=== PATIENT | female | born 1955 | race Caucasian/White ===

== ENCOUNTER 2020-02-06 05:51 | Outpatient (RCR) | payer BC, OTHER ==
[~2020-02-06] VITALS: Ht 152 cm; Wt 63.6 kg
[~2020-02-06 05:51] MED LIST: CALC-80 PO; DIPH-450 PO; ESTR0.455 PO; FIBER THERAPY PO; FLUT1DIS26 IH; HAIR SKIN AND NAILS PO; MMT17NA NS; MULT-608 PO; VENL50TA PO
[2020-02-06] MEDS ORDERED: MONT10TA21 PO (12:08)
[2020-02-06] MEDS ORDERED: MULT-1021 PO (12:08)
[2020-02-06] MEDS ORDERED: RT-ALBUINH IH (12:08)
[2020-02-06] MEDS ORDERED: BENZ-13 PO (12:08)
[2020-02-06] MEDS ORDERED: SERT100T8 PO (12:08)
[2020-02-06] MEDS ORDERED: GUAI-813 PO (12:08)
[2020-02-06] MEDS ORDERED: BUDE10.2 IH (12:08)
[2020-02-06] MEDS ORDERED: LORA10CA PO (12:08)
[2020-02-06] MEDS ORDERED: MULT-985 PO (12:08)
[2020-02-06] MEDS ORDERED: FLUT9.9S NS (12:08)
== END 2020-02-06 12:30 | disposition home or self-care (01) ==
LOC: PREOP 05:51 → EDSTATUS 13:00
PROVIDERS: ATTEND Otolaryngology Otolaryngology/Facial Plastic Surgery
DX: Z01.818 Encounter for other preprocedural examination (principal)

== ENCOUNTER 2020-02-13 08:15 | Day surgery (SDC) | payer BC, OTHER ==
[2020-02-13] VITALS (12 sets, daily range): BP systolic 108–162; BP diastolic 46–75
[~2020-02-13] VITALS: Ht 152 cm; Wt 63.6 kg
[~2020-02-13 08:15] MED LIST changes: +BENZ-13 PO; +BUDE10.2 IH; +FLUT9.9S NS; +GUAI-813 PO; +LORA10CA PO; +MONT10TA21 PO; +MULT-1021 PO; +MULT-985 PO; +RT-ALBUINH IH; +SERT100T8 PO
[2020-02-13] MEDS ORDERED: PHENYLEPHRINE 0.5% NASAL SPR (NEO-SYNEPHRINE) REG ONE (08:40)
[2020-02-13] MEDS ORDERED: BSS 15 ML ONE (08:40)
[2020-02-13] MEDS ORDERED: COCAINE HCL 4% 2 ML SYR ONE (08:40)
[2020-02-13] MEDS ORDERED: LIDOCAINE/EPI 1%-1:100,000 (XYLOCAINE) 20ML ONE (08:40)
[2020-02-13] MEDS ORDERED: LACTATED RINGERS 1,000 ML IV PRN (08:51)
[2020-02-13] MEDS ORDERED: LEVOFLOXACIN 500 MG/100 ML IV 100 ML IV ONE (09:00)
[2020-02-13] MEDS ORDERED: HYDROCORTISONE 100 MG/2 ML (Solu-CORTEF) VIAL IV ONE (09:00)
[2020-02-13] MEDS ORDERED: CATHETER FLUSH 10 ML SYR IV PRN (09:15)
[2020-02-13] MEDS ORDERED: SEVOFLURANE (ULTANE) 15 ML INHAL SOLN ONE ×4 (09:20→10:38)
[2020-02-13] MEDS ORDERED: fentaNYL INJECTION 100 MCG/2 ML AMP ONE (09:20)
[2020-02-13] MEDS ORDERED: proPOfol 200 MG/20 ML (DIPRIVAN) VIAL IV ONE (09:20)
[2020-02-13] MEDS ORDERED: ONDANSETRON 4 MG/2 ML (SDV) Z0FRAN ONE (09:20)
[2020-02-13] MEDS ORDERED: LIDOCAINE PF 2% 5 ML (XYLOCAINE) VIAL ONE (09:20)
[2020-02-13] MEDS ORDERED: MIDAZOLAM 2 MG/2 ML (VERSED) VIAL ONE (09:21)
--- NOTE | 2020-02-13 09:32 | Progress Note-Pre Operative ---
Pre-Operative Progress Note H&P Reviewed The H&P was reviewed, patient examined and no changes noted. Date Seen by Provider: Feb 13, 2020 Time Seen by Provider: : Date H&P Reviewed: Feb 13, 2020 Time H&P Reviewed: 08:30 Pre-Operative Diagnosis: Bilateral Recurrent Chronic Sinus Disease MARIBETH PAEZ MD Feb 13, 2020 09:32
[2020-02-13] MEDS ORDERED: D5 1/2 NS W/KCL 20 MEQ/L 1,000 ML IV SCH (09:33)
--- NOTE | 2020-02-13 09:33 | Progress Note-Post Operative ---
Post-Operative Progess Note Surgeon (s)/Script Coordinator (s) Surgeon MARIBETH PAEZ MD Script Coordinator n/a Pre-Operative Diagnosis Bilateral Recurrent Chronic Sinus Disease Post-Operative Diagnosis same Post-Op Procedure Note Date of Procedure: Feb 13, 2020 Name of Procedure Performed: Bilateral Revision ESS, Bialt Red of Inf Turbs Description & Findings Description and Findings: n/a Anesthesia Type get Estimated Blood Loss minimal Packing none. Specimen(s) collected/removed Bilat Chronic Sinus disease MARIBETH PAEZ MD Feb 13, 2020 09:33
[2020-02-13] MEDS ORDERED: predniSONE 20 MG TAB PO ONE (09:45)
[2020-02-13] MEDS ORDERED: ACETAMINOPHEN 325 MG TABLET PO PRN (09:45)
[2020-02-13] MEDS ORDERED: HYDROcodone/APAP 5 MG/325 MG (LORTAB) TAB PO PRN (09:45)
[2020-02-13] MEDS ORDERED: RT-ALBUTEROL SULF 2.5 MG/3 ML PRE-MIX VIAL ONE (10:29)
[2020-02-13] MEDS ORDERED: ROCURONIUM 10 MG/ML 5 ML SYRINGE IV ONE (10:37)
[2020-02-13] MEDS ORDERED: MEPERIDINE (DEMEROL) INJ 50 MG/ML IVP ONE (10:45)
[2020-02-13] MEDS ORDERED: RT-ALBUTEROL SULF 2.5 MG/3 ML PRE-MIX VIAL INH ONE (10:45)
[2020-02-13] MEDS ORDERED: ONDANSETRON 4 MG/2 ML (SDV) Z0FRAN IVP PRN (10:45)
[2020-02-13] MEDS ORDERED: morphine INJ 10 MG/ML 1ML (SYR OR VIAL) IVP ONE (10:45)
--- NOTE | 2020-02-13 11:19 | Anesthesia-General Post-Op ---
General Patient Condition Mental Status/LOC: Same as Preop Cardiovascular: Satisfactory Nausea/Vomiting: Absent Respiratory: Satisfactory Pain: Controlled Complications: Absent Post Op Complications Complications None Follow Up Care/Instructions Patient Instructions None needed. Anesthesia/Patient Condition Patient Condition Patient is doing well, no complaints, stable vital signs, no apparent adverse anesthesia problems. No complications reported per nursing. KINJAL KESSLER CRNA Feb 13, 2020 11:19
--- NOTE | 2020-02-13 12:00 | NUR ---
PT TO FOLLOW UP WITH DR PAEZ IN 7 DAYS. PT IS FROM [place] AND WANTS TO FOLLOWUP THERE INSTEAD OF COMING TO [place]. DR MATHUR REPORTS NO ONE IN [place] OFFICE IN 7 DAYS, WILL HAVE TO BE SEEN IN [place] OR BE SEEN IN [place] IN 10 DYAS. PT PREFERS TO WAIT UNTIL 10 DAYS FOR FOLLOW UP AND BE SEEN IN [place]. APPT MADE
[2020-02-13] MEDS ORDERED: ACHD5005 PO (12:10)
[2020-02-13] MEDS ORDERED: LEVO500T80 PO (12:10)
[2020-02-13] MEDS ORDERED: PRD20T PO (12:10)
== END 2020-02-13 12:45 | disposition home or self-care (01) ==
LOC: SDC 08:15
PROVIDERS: ATTEND Otolaryngology Otolaryngology/Facial Plastic Surgery
DX: J32.8 Other chronic sinusitis (principal); J33.9 Nasal polyp, unspecified; J34.3 Hypertrophy of nasal turbinates; R09.81 Nasal congestion; J33.0 Polyp of nasal cavity; F41.9 Anxiety disorder, unspecified; F32.9 Major depressive disorder, single episode, unspecified; J45.909 Unspecified asthma, uncomplicated; Z79.899 Other long term (current) drug therapy; Z79.51 Long term (current) use of inhaled steroids; Z88.2 Allergy status to sulfonamides; Z88.1 Allergy status to other antibiotic agents; Z88.8 Allergy status to other drugs, medicaments and biological substances
CPT/HCPCS: 87081; 88305